=== PATIENT | male | born 1960 | race Caucasian/White ===

== ENCOUNTER → 2020-07-26 17:40 | Outpatient (CLI) | payer MEDICAID, SELFPAY ==
[2020-07-26 18:07] LABS: Basophils % 0.5 % (0.1-2.0); Eosinophils # 0.2 K/mm3 (0.0-0.4); Hematocrit 47.3 % (42.0-52.0); Hemoglobin 15.2 g/dL (14.1-18.0); Lymphocytes # 2.3 K/mm3 (0.7-4.5); Lymphocytes % 34.6 % (10-50); Mean Corpuscular HGB Conc 32.2 g/dL (31.8-35.4); Mean Corpuscular Hemoglobin 28.9 pg (27.0-31.2); Mean Corpuscular Volume 89.5 fl (80-94); Monocytes # 0.4 K/mm3 (0.1-1.0); Monocytes % 5.6 % (1.7-9.3); Neutrophils # 3.7 K/mm3 (1.8-7.8); Neutrophils % 56.4 % (37.0-80.0); Platelet Count 329 K/mm3 (142-424); Red Blood Count 5.28 M/mm3 (4.60-6.20); Red Cell Distribution Width 13.9 % (11.5-17.5); White Blood Count 6.5 K/mm3 (4.8-10.8)
[2020-07-26 18:26] LABS: Alanine Aminotransferase 18 U/L (12-78); Albumin Level 4.9 g/dl (3.5-5.0); Albumin/Globulin Ratio 1.9 (1.1-1.8); Alkaline Phosphatase 33 U/L (38-126); Anion Gap 8.8 mEq/L (5-15); Aspartate Amino Transferase 29 U/L (17-59); Bilirubin,Total 0.4 mg/dl (0.2-1.3); Blood Urea Nitrogen 8 mg/dl (9-20); Calcium 10.2 mg/dl (8.4-10.2); Carbon Dioxide 30 mmol/L (22.0-30.0); Chloride 104 mmol/L (98-107); Chol/HDL Ratio 3.2 (1-3.5); Cholesterol 203 mg/dl (140-200); Estimated Glomerular Filt Rate 76 ml/min (>60); GFR (African American) 92 ML/MIN (>60); Globulin 2.6 g/dL (1.3-3.2); Glucose 97 mg/dl (74-100); HDL Cholesterol 63 mg/dl (40-60); Potassium 4.8 mmoL/L (3.5-5.1); Sodium 138 mmol/L (136-145); Total Protein,Serum 7.5 g/dl (6.3-8.2); Triglycerides 105 mg/dl (30-150); VLDL Cholesterol 21 mg/dL (0-40)
[2020-07-26 18:38] LABS: Direct LDL Cholesterol 101.36 mg/dL (100-129)
[2020-07-26 18:43] LABS: Free T4 (Free Thyroxine) 1.58 ng/dl (0.78-2.19)
[2020-07-26 18:44] LABS: 25-OH Vitamin D, Total 39.3 ng/mL (30-100)
[2020-07-26 18:59] LABS: Prostate Specific Ag Screen 2.4 ng/ml (0.0-4.0)
== END ==
PROVIDERS: Visit Provider Emergency Medicine
DX: Z00.00 Encounter for general adult medical examination without abnormal findings (principal); R53.83 Other fatigue; Z12.5 Encounter for screening for malignant neoplasm of prostate
CPT/HCPCS: 36415; 80053; 80061; 82306; 84439; 84443; 85025; G0103

== ENCOUNTER → 2020-07-27 10:13 | Outpatient (CLI) | payer MEDICAID, SELFPAY ==
[2020-07-27 10:18] LABS: Microscopic, Urine URINE MICROSCOPIC (MICROSCOPIC)
--- NOTE | 2020-07-27 10:41 | ECG_ITS ---
APPROVED REPORT Exam: Resting ECG HR:77 bpm ECG Measurements Heart Rate 77 AXES AZ 122 P 53 QRSd 110 QRS 83 QT 374 T 43 QTc 423 Conclusion Normal sinus rhythm Normal ECG Electronically signed by : Yosef Wolf, 07/27/2020 22:19:11
[2020-07-27 10:48] LABS: Appearance,Urine CLEAR (Clear); Bilirubin,Urine Negative (Negative); Blood, Urine Negative (Negative); Color,Urine YELLOW (Yellow); Glucose,Urine (UA) Negative (Negative); Ketones,Urine Negative (Negative); Leukocyte Esterase,Urine Negative (Negative); Nitrate,Urine Negative (Negative); PH,Urine 5.5 (5.0-8.5); Protein,Urine Negative (Negative); Specific Gravity, Urine <= 1.005 (1.005-1.030); Urobilinogen,Urine 0.2 EU/dl (0.2)
[2020-07-27 11:06] LABS: Squamous Epithelial Cell,Urine Occasional #/hpf (0-5)
== END ==
PROVIDERS: PCP Emergency Medicine; Visit Provider Surgery
DX: K40.90 Unilateral inguinal hernia, without obstruction or gangrene, not specified as recurrent (principal); Z01.812 Encounter for preprocedural laboratory examination; Z11.52 Encounter for screening for COVID-19
CPT/HCPCS: 81001; 93005; U0003

== ENCOUNTER 2020-07-29 08:11 | Day surgery (SDC) | payer MEDICAID, SELFPAY ==
[2020-07-27 13:30] VITALS: BMI 23.0
[2020-07-29] VITALS (11 sets, daily range): BP systolic 105–149; BP diastolic 59–91; PULSE 76–104; RESP 12–18; TEMP 36.4–42.7; O2SAT 95–99
--- NOTE | 2020-07-29 09:41 | P.PN_ITS ---
[facility] Anesthesia Checklist - Patient Identification Patient Identification: Arm Band - Structural Data Admitted From: Home Planned Operative Procedure/s: Open inguinal hernia Consent for Planned Operative Procedure(s) Verified: Yes - NPO Status Verified Time NPO: 00:00 - Additional verifications Anesthesia Reactions: No Hx Blood Transfusions: No Blood Transfusion Reaction: No - Airway Assessment C-Spine Mobility Assessed: Yes TMJ Mobility Assessed: Yes Dentition: Poor Dentition (Missing, decay present) - Neurological Assessment Level of Consciousness: Awake Hx Seizures: No Numbness or tingling in extremities: No - Anesthesia Plan Anesthesia Risk discussed: Yes Anesthesia Plan: Verified ASA Class: III Anesthesia Type: General [facility] History I have reviewed the patient's past medical history: Yes Medical History: Reports:: Gastroesophageal Reflux Disease(GERD) Denies:: Cancer, Diabetes Mellitus Type 1, Diabetes Mellitus Type 2, Internal Pacemaker, MRSA, Seizures *Have you ever received a pneumonia vaccine?: No *Have you received a flu vaccine this season?: No Other Medical History: Reports: Other (Chronic pain). Denies: Blood Transfusion Reaction Anesthesia experience/problems:: None Other Surgeries: Yes: No Previous Surgery. No: Pacemaker Amputation: No Fractures: Yes - *Social History Last grade of school completed: 9th or 10th Smoking Status: Current every day smoker Tobacco Type: cigarettes # Packs/Day (cigarettes): 1 #Yrs smoked (if former smoker): 3 Alcohol Intake: never Substance Use Type: marijuana *Occupational Status:: unemployed Housing: house Household Members: significant other *Travel in the last 8 weeks: None Family Hx:: Cancer, Heart Attack, Diabetes
--- NOTE | 2020-07-29 11:18 | P.OP_ITS ---
Date of procedure: 07/29/20 Pre-op Diagnosis:: Right inguinal hernia (patient also has left inguinal hernia that he does not wish to have repaired at this time) Post-op Diagnosis:: Same Procedure performed:: Open right inguinal hernia repair Surgeon:: Masoud Matthews MD Anesthesia: LMA Estimated blood loss (mL): 15 Operative findings:: Large direct defect Operative note:: After informed consent was obtained the patient was taken to the operating room and placed in the supine position. General anesthesia was induced and his lower abdomen and groin/scrotum were prepped and draped in a sterile fashion. After infiltration of local anesthetic an oblique right groin incision was made. A combination of scalpel and electrocautery was utilized to transect through the subcutaneous tissue through Hattie's fascia to the level of the external aponeurosis. The external aponeurosis was sharply opened to the level of the external ring. The contents of the canal were carefully elevated. A large direct defect was encountered. The hernia sac protruding through the large direct defect was from surrounding tissue. An extra-large PerFix plug was then secured within the defect utilizing 0 Ethibond. 0 Ethibond was then used to secure the the PerFix overlay mesh to the shelving edge inferiorly and fascial margin superiorly. The external aponeurosis was reapproximated using running 2-0 Vicryl. Hattie's fascia was reapproximated in a same manner. Skin was then closed with running 3-0 Stratafix. Dressings were applied and the pa tient was transferred to recovery in stable condition. Condition: stable Disposition: PACU Specimens:: None Complications:: No immediate
--- NOTE | 2020-07-29 11:53 | P.PN_ITS ---
[facility] Anesthesia Record Part I Intake, IV Amount: 1,100 Estimated blood loss (mL): 100 Urine output (mL): 100 Blood Pressure: 121/65 SaO2: 98 Pulse Rate: 93 Respiratory Rate: 12 Temperature: 98.7 F Patient is:: Drowsy Stable to PACU at:: 11:30
[2020-07-29 13:43] LABS: Microscopic,Cath URINE MICROSCOPIC (MICROSCOPIC)
[2020-07-29 13:46] LABS: Appearance,Urine/Cath CLEAR (Clear); Bilirubin,Cath Negative (Negative); Blood, Urine/Cath Negative (Negative); Color,Urine/Cath YELLOW (Yellow); Glucose,Urine/Cath (UA) Negative (Negative); Ketones,Urine/Cath Negative (Negative); Leukocyte Esterase,Cath Negative (Negative); Nitrate,Cath Negative (Negative); Protein,Urine/Cath Negative (Negative); Urobilinogen,Cath 0.2 EU/dl (0.2)
[2020-07-29 13:50] LABS: Bacteria,Urine/Cath TRACE /lpf; Transitional Epi Cells,Ur/Cath OCC #/lpf (0-3)
--- NOTE | 2020-08-02 07:36 | HMH.ANESII ---
[facility] Anesthesia Record Part II Discharge Time: 12:00 Destination: Surgical Day Care (OP Surgery) PACU nurse assessment reviewed?: Yes Patient Condition:: Good Anesthesia Complications:: None Swallowing reflex intact?: Yes Cyanosis?: No Blood Pressure: 149/76 Pulse Rate: 96 Temperature: 98 F Mental Status: Alert & Oriented Pain level:: 2 Nausea and/or vomitting:: None Intake, IV Amount: 0
[2020-08-02 07:37] VITALS: BP 149/76; PULSE 96; TEMP 36.6
== END 2020-07-29 12:48 | disposition home or self-care (01) ==
LOC: OR 08:13
PROVIDERS: PCP Emergency Medicine; Visit Provider Surgery
PROC: (CPT 49505; principal; 2020-07-29 09:45)
DX: K40.20 Bilateral inguinal hernia, without obstruction or gangrene, not specified as recurrent (principal); K21.9 Gastro-esophageal reflux disease without esophagitis; G89.29 Other chronic pain; Z72.0 Tobacco use; Z80.9 Family history of malignant neoplasm, unspecified; Z83.3 Family history of diabetes mellitus; Z82.3 Family history of stroke
CPT/HCPCS: 49505; 81001; 96374

== ENCOUNTER → 2022-02-15 09:06 | Outpatient (CLI) | payer MEDICAID, SELFPAY ==
--- NOTE | 2022-02-15 09:07 | MR_ITS ---
FINAL REPORT CLINICAL HISTORY: back pain. intermittent leg numbness. FINDINGS: Multiplanar MR imaging of the lumbar spine was performed without contrast. On the sagittal T2-weighted images, there is abnormal decreased signal at L3-4, L4-5 and L5-S1. The vertebrae are of normal height. The vertebral alignment is normal. L3-4: A mild diffuse disc bulge is present with mild bilateral neural foraminal narrowing. L4-5: A moderate diffuse disc bulge is present with endplate hypertrophy, moderate spinal canal compromise and bilateral neural foraminal narrowing. L5-S1: A mild diffuse disc bulge is present with posterolateral disc protrusions and moderate bilateral neural foraminal narrowing. IMPRESSION: Moderate neural foraminal narrowing bilaterally at L4-5 and L5-S1. No evidence of acute osseous abnormality. Reviewed, Interpreted and Dictated by Bret Lozano MD Transcribed by Raiza Rahman Authenticated and . [facility]
== END ==
PROVIDERS: PCP Emergency Medicine; Visit Provider Emergency Medicine
DX: M54.16 Radiculopathy, lumbar region (principal)
CPT/HCPCS: 72148; 76376

== ENCOUNTER → 2022-04-02 08:49 | Outpatient (POV) | payer MEDICAID, SELFPAY ==
[2022-04-02 08:53] VITALS: BP 143/76; PULSE 101; RESP 18; O2SAT 97; BMI 20.7
--- NOTE | 2022-04-02 09:21 | EXP.PAIN.OV ---
HPI Data of Consult Patient: new to practice Consult date: 04/02/22 Requesting Physician: Sachi Kaiser APRN Primary Care Provider: Torin Agudelo MD Consult Narrative Reason for consult: Low back pain, neck pain, groin pain History of present illness: Mr. Lemon is a 61 year old male presents as a new patient. He is a referral from Dr. Agudelo's office. Patient rates his pain a 6 out of 10. He states his pain is in his low back pain that radiates into his left groin area. Patient also states that he has had neck pain for approximately 2 years. Patient states that his low back pain started about 7 years ago denies injury. States that pain is sharp and runs into his left groin. Patient states that pain is worse when sitting and standing and stretching helps his back. Patient states he has tried kkzl-aou-wonhmzv medications such as Tylenol and ibuprofen and they are not effective. He states he does use ice and heat and it does help at times. Patient currently also uses topical cream and lidocaine and he states that it is effective at times. Patient currently also sees his family provider Dr. Agudelo he currently is prescribed the following medication from his family provider: gabapentin 100 mg 3 times a day, hydrocodone acetaminophen 325/ 5 mg twice a day. Patient denies any side effects from this medication. [facility] #[id number] was reviewed and appropriate. CC: Sachi Kaiser APRN [facility] Disclaimer: The information contained in this section may have been updated after the patient was seen, as this information can be updated by other users. Surgical History H/O hernia repair Status post right foot surgery Social History (Updated 04/02/22 @ 09:10 by Landy Bustos RN) Smoking Status: Current every day smoker tobacco type: cigarettes packs per day: 1 alcohol intake: never substance use type: denies use current occupational status: disabled Travel in the last 8 weeks: None household members: significant other housing: house caffeine: Yes Review of Systems Review of Systems Review of systems (narrative): Review of Systems: General: No recent weight changes, no fever, no sleep disturbances Respiratory: No cough, no shortness of air, no recurring pulmonary infections Cardiovascular/peripheral vascular: No chest pain, no palpitations, no edema, no shortness of breath Gastrointestinal: No new onset incontinence, normal bowel movements reported Genitourinary: No new onset incontinence Musculoskeletal: low back pain radiating into right groin Psychiatric: [Normal mood/affect] Neurological: [Denies weakness in extremities], [denies balance issues] Meds Home Medications and Allergies Home Medications Medication Instructions Recorded Confirmed Type hydrocodone 5 mg-acetaminophen 325 1 tab PO BID pain #60 tabs 03/15/22 04/02/22 Rx mg tablet gabapentin 100 mg capsule 100 mg PO TID Pain 04/02/22 04/02/22 History lidocaine 5 % topical patch 1 patch topical DAILY Pain 04/02/22 04/02/22 History New Prescriptions to Start Prescriptions: Allergies Allergy/AdvReac Type Severity Reaction Status Date / Time No Known Allergies Allergy Verified 03/15/22 13:41 Objective Vital signs: Pulse Resp BP Pulse Ox 101 H 18 143/76 H 97 04/02/22 08:53 04/02/22 08:53 04/02/22 08:53 04/02/22 08:53 Narrative: Physical Exam: General: Alert and oriented x3, no acute distress, pleasant and cooperative Lungs: Respirations even and unlabored, symmetrical chest expansion Eyes: PERRL Musculoskeletal: Flexion and extension of lumbar [spine] somewhat guarded secondary to pain, [antalgic gait noted,extreme point tenderness in low back, positive Saray's. Neurological: Speech clear, no gross sensory deficit Additional findings Additional findings: MRI Results: Ordering Physician: Torin Agudelo MD Date of Service: 02/15/22 Pr
== END ==
PROVIDERS: PCP Emergency Medicine; Visit Provider Nurse Practitioner Family
DX: M48.061 Spinal stenosis, lumbar region without neurogenic claudication (principal); M54.50 Low back pain, unspecified; M54.2 Cervicalgia; R10.31 Right lower quadrant pain
CPT/HCPCS: 99202; G0463

== ENCOUNTER → 2022-04-11 15:00 | Outpatient (CLI) | payer MEDICAID, SELFPAY ==
[2022-04-11 20:36] LABS: Amphetamine/Metha Screen,Urine Negative ng/ml (<1000)
[2022-04-11 20:37] LABS: Barbiturates Screen,Urine Negative ng/ml (<200); Benzodiazepines Screen,Urine Negative ng/ml (<200)
[2022-04-11 20:38] LABS: Cannabinoid Screen,Urine Positive ng/ml (<50); Cocaine Screen,Urine Negative ng/ml (<300)
[2022-04-11 20:39] LABS: Methadone Screen,Urine Negative ng/ml (<300)
[2022-04-11 20:40] LABS: Opiate Screen,Urine Positive ng/ml (<300); Phencyclidine Screen,Urine Negative ng/ml (<25)
== END ==
PROVIDERS: PCP Emergency Medicine; Visit Provider Emergency Medicine
DX: M54.16 Radiculopathy, lumbar region (principal)
CPT/HCPCS: 80305

== ENCOUNTER → 2022-06-06 23:00 | Outpatient (CLI) | payer MEDICARE, MEDICAID, SELFPAY ==
[2022-06-06 19:08] LABS: Barbiturates Screen,Urine Negative ng/ml (<200)
[2022-06-06 19:09] LABS: Benzodiazepines Screen,Urine Negative ng/ml (<200)
[2022-06-06 19:12] LABS: Cocaine Screen,Urine Negative ng/ml (<300); Methadone Screen,Urine Negative ng/ml (<300)
[2022-06-06 19:13] LABS: Opiate Screen,Urine Negative ng/ml (<300)
[2022-06-06 19:14] LABS: Phencyclidine Screen,Urine Negative ng/ml (<25)
[2022-06-06 19:33] LABS: Amphetamine/Metha Screen,Urine Negative ng/ml (<1000)
[2022-06-06 19:36] LABS: Cannabinoid Screen,Urine Positive ng/ml (<50)
== END ==
PROVIDERS: PCP Emergency Medicine; Visit Provider Emergency Medicine
DX: Z79.899 Other long term (current) drug therapy (principal)
CPT/HCPCS: 80305

== ENCOUNTER → 2022-10-03 11:00 | Outpatient (CLI) | payer MEDICARE, MEDICAID, SELFPAY ==
[2022-10-03 12:40] LABS: Basophils % 0.7 % (0.1-2.0); Eosinophils # 0.1 K/mm3 (0.0-0.4); Eosinophils % 1.7 % (0.1-12.0); Hematocrit 47.3 % (42.0-52.0); Hemoglobin 14.7 g/dL (14.1-18.0); Lymphocytes # 1.9 K/mm3 (0.7-4.5); Lymphocytes % 32.5 % (10-50); Mean Corpuscular HGB Conc 31.1 g/dL (31.8-35.4); Mean Corpuscular Volume 93.3 fl (80-94); Mean Platelet Volume 7.3 fl (7.4-10.4); Monocytes # 0.3 K/mm3 (0.1-1.0); Monocytes % 5.4 % (1.7-9.3); Neutrophils # 3.6 K/mm3 (1.8-7.8); Neutrophils % 59.8 % (37.0-80.0); Platelet Count 286 K/mm3 (142-424); Red Blood Count 5.07 M/mm3 (4.60-6.20); Red Cell Distribution Width 13.7 % (11.5-17.5)
[2022-10-03 12:48] LABS: Alanine Aminotransferase 36 U/L (12-78); Albumin Level 4.6 g/dl (3.5-5.0); Albumin/Globulin Ratio 1.8 (1.1-1.8); Alkaline Phosphatase 27 U/L (38-126); Anion Gap 8.2 mEq/L (5-15); Aspartate Amino Transferase 78 U/L (17-59); Bilirubin,Total 0.3 mg/dl (0.2-1.3); Blood Urea Nitrogen 7 mg/dl (9-20); Calcium 9.2 mg/dl (8.4-10.2); Carbon Dioxide 30 mmol/L (22.0-30.0); Chloride 104 mmol/L (98-107); Chol/HDL Ratio 2.9 (1-3.5); Cholesterol 191 mg/dl (140-200); Estimated Glomerular Filt Rate 86 ml/min (>60); GFR (African American) 103 ML/MIN (>60); Globulin 2.5 g/dL (1.3-3.2); Glucose 94 mg/dl (74-100); HDL Cholesterol 65 mg/dl (40-60); Potassium 4.2 mmoL/L (3.5-5.1); Sodium 138 mmol/L (136-145); Total Protein,Serum 7.1 g/dl (6.3-8.2); Triglycerides 66 mg/dl (30-150); VLDL Cholesterol 13 mg/dL (0-40)
[2022-10-03 13:00] LABS: Direct LDL Cholesterol 101.78 mg/dL (100-129)
[2022-10-03 13:04] LABS: 25-OH Vitamin D, Total 43.3 ng/mL (30-100); Free T4 (Free Thyroxine) 1.19 ng/dl (0.78-2.19)
[2022-10-03 13:08] LABS: Amphetamine/Metha Screen,Urine Negative ng/ml (<1000)
[2022-10-03 13:09] LABS: Barbiturates Screen,Urine Negative ng/ml (<200); Benzodiazepines Screen,Urine Negative ng/ml (<200)
[2022-10-03 13:10] LABS: Cannabinoid Screen,Urine Positive ng/ml (<50)
[2022-10-03 13:11] LABS: Cocaine Screen,Urine Negative ng/ml (<300); Methadone Screen,Urine Negative ng/ml (<300)
[2022-10-03 13:12] LABS: Opiate Screen,Urine Positive ng/ml (<300)
[2022-10-03 13:13] LABS: Phencyclidine Screen,Urine Negative ng/ml (<25)
[2022-10-03 13:20] LABS: Thyroid Stimulating Hormone 1.33 uIU/mL (0.465-4.68)
== END ==
PROVIDERS: PCP Emergency Medicine; Visit Provider Emergency Medicine
DX: R53.83 Other fatigue (principal); E03.9 Hypothyroidism, unspecified; K59.00 Constipation, unspecified; Z79.899 Other long term (current) drug therapy
CPT/HCPCS: 80053; 80061; 80305; 82306; 84439; 84443; 85025

== ENCOUNTER → 2022-11-30 14:35 | Outpatient (CLI) | payer MEDICARE, MEDICAID, SELFPAY ==
[2022-11-30 19:35] LABS: Amphetamine/Metha Screen,Urine Negative ng/ml (<1000); Barbiturates Screen,Urine Negative ng/ml (<200)
[2022-11-30 19:36] LABS: Benzodiazepines Screen,Urine Negative ng/ml (<200)
[2022-11-30 19:37] LABS: Cannabinoid Screen,Urine Positive ng/ml (<50)
[2022-11-30 19:38] LABS: Cocaine Screen,Urine Negative ng/ml (<300)
[2022-11-30 19:39] LABS: Methadone Screen,Urine Negative ng/ml (<300)
[2022-11-30 19:43] LABS: Opiate Screen,Urine Positive ng/ml (<300)
[2022-11-30 19:44] LABS: Phencyclidine Screen,Urine Negative ng/ml (<25)
== END ==
PROVIDERS: PCP Emergency Medicine; Visit Provider Emergency Medicine
DX: M54.16 Radiculopathy, lumbar region (principal); Z79.899 Other long term (current) drug therapy
CPT/HCPCS: 80305

== ENCOUNTER 2023-03-28 19:02 | Outpatient (CLI) | payer MEDICAID, SELFPAY ==
[2023-03-28 21:20] LABS: Amphetamine/Metha Screen,Urine Negative ng/ml (<1000); Barbiturates Screen,Urine Negative ng/ml (<200); Benzodiazepines Screen,Urine Negative ng/ml (<200); Cannabinoid Screen,Urine Positive ng/ml (<50); Cocaine Screen,Urine Negative ng/ml (<300); Methadone Screen,Urine Negative ng/ml (<300); Opiate Screen,Urine Positive ng/ml (<300); Phencyclidine Screen,Urine Negative ng/ml (<25)
[2023-04-02 17:09] LABS: Codeine Negative (Cutoff=100); Hydrocodone Positive (.); Hydromorphone Positive (.); Morphine Negative (Cutoff=100); Opiates Positive (.)
== END 2023-03-28 23:59 ==
PROVIDERS: Visit Provider Family Medicine
DX: Z79.899 Other long term (current) drug therapy (principal)
CPT/HCPCS: 80307; 80361; 80365; G0480

== ENCOUNTER 2023-09-26 14:55 | Outpatient (POV) | payer MEDICARE, MEDICAID, SELFPAY ==
[2023-09-26 15:25] VITALS: BP 157/79; PULSE 110; RESP 18; O2SAT 96; BMI 22.1
--- NOTE | 2023-09-26 15:48 | A.OFFVIS_ITS ---
HPI Data of Consult Patient: new to practice Consult date: 09/26/23 Requesting Physician: Sachi Kaiser APRN Primary Care Provider: Jackie Mullins RN Consult Narrative Reason for consult: Neck pain, mid back pain, low back pain History of present illness: Mr. Lemon is a 63 year old male who presents today as a [facility]. Today he rates his pain a 7 out of 10. Patient states he has pain throughout his neck that radiates down in his mid back to his low back. Patient does state that the primary is with neck and low back. Patient states that this is a chronic aching, throbbing sensation and denies any radiating symptoms into his extremities. Patient does state the pain has been going on for years and progressively worsened. Patient states that he has tried kcra-oov-kmlwukl medications such as Tylenol and ibuprofen along with heat and ice and topicals with minimal relief. Patient has to eat active and do at home exercise and stretching with minimal relief. Patient denies any physical therapy or chiropractor history. Patient has been seen in pain management in the past however denies any injection history or surgery history. Patient states he has not had any updated imaging for about 3 years. He is interested in any help we may be able to provide as the pain does interfere with his ability perform activities of daily living such as cooking and cleaning. He does state that he notices that more pain with certain movements such as bending, twisting or lifting. He states he can just sneezing causes significant pain. He has been on gabapentin and Coleraine in the past from outside providers. His Chetan has been reviewed. CC: Sachi Kaiser APRN [facility] Disclaimer: The information contained in this section may have been updated after the patient was seen, as this information can be updated by other users. Medical History (Updated 09/26/23 @ 15:51 by Sachi Kaiser APRN) Anxiety Depression Surgical History Status post right foot surgery H/O hernia repair Family History (Updated 09/26/23 @ 15:04 by Landy Bustos RN) Other Unknown family medical history Social History (Updated 09/26/23 @ 15:04 by Landy Bustos RN) Smoking Status: Current every day smoker tobacco type: cigarettes packs per day: 1 alcohol intake: never substance use type: denies use current occupational status: disabled Travel in the last 8 weeks: None household members: significant other housing: house caffeine: Yes Review of Systems Review of Systems Review of systems:: pertinent systems reviewed and negative unless documented below Review of systems (narrative): Review of Systems: General: No recent weight changes, no fever, no sleep disturbances Respiratory: No cough, no shortness of air, no recurring pulmonary infections Cardiovascular/peripheral vascular: No chest pain, no palpitations, no edema, no shortness of breath Gastrointestinal: No new onset incontinence, normal bowel movements reported Genitourinary: No new onset incontinence Musculoskeletal: Neck pain, low back pain Psychiatric: [Normal mood/affect] Neurological: [Denies weakness in extremities], [denies balance issues] Meds Home Medications and Allergies Home Medications Medication Instructions Recorded Confirmed Type diclofenac sodium 1 % topical gel 2 g topical QID #100 grams 05/02/23 09/26/23 Rx amitriptyline 50 mg tablet 50 mg PO HS sleep #90 tabs 06/04/23 09/26/23 Rx lidocaine 5 % topical patch 1 patch topical DAILY Pain #30 ea 07/01/23 09/26/23 Rx New Prescriptions to Start Prescriptions: Allergies Allergy/AdvReac Type Severity Reaction Status Date / Time No Known Allergies Allergy Verified 07/01/23 14:02 Objective Vital signs: Pulse Resp BP Pulse Ox O2 Del Method 110 H 18 157/79 H 96 Room Air 09/26/23 15:25 09/26/23 15:25 09/26/23 15:25 09/26/23 15:25 09/26/23 15:25 Narrative: Physical Exam: General: Alert and oriented x3, no acute distress, pleasant and cooperative Lungs: Respirations even and unlabored, symmetrical chest expansion Eyes: PERRL Musculoskeletal: Flexion and extension of lumbar [spine] somewhat guarded secondary to pain, [antalgic gait noted] positive Kemps test Neurological: Speech clear, no gross sensory deficit Assessment and Plan *Assessment and plan (1) Low back pain: Status: Acute Qualifiers: Chronicity: chronic Back pain laterality: bilateral Sciatica presence: without sciatica Qualified Code(s): M54.50 - Low back pain, unspecified; G89.29 - Other chronic pain Category: Medical Code(s): M54.50 - Low back pain, unspecified (2) Neck pain: Status: Acute Category: Medical Code(s): M54.2 - Cervicalgia Plan Patient is experiencing significant pain throughout his low back and neck with limited range of motion. Patient did have a positive Kemps test of his lumbar spine during today's exam. I have discussed with patient that he may benefit from lumbar medial branch blocks in the future however due to not having updated imaging we will first order x-ray imaging of his cervical and lumbar spine. I will order MRI without contrast to follow of the cervical and lumbar spine. Patient does state that the lumbar spine is worse than the neck. Patient will return to clinic in 1 month for reevaluation of symptoms and plan of care. Patient has been instructed to contact the clinic with any concerns before the next appointment. Dr. Self has reviewed this note and agrees with this plan of care. This note was dictated using voice recognition software and make contain errors or omissions.
== END 2023-09-26 23:59 | disposition home or self-care (01) ==
PROVIDERS: Visit Provider Nurse Practitioner Family
DX: M54.50 Low back pain, unspecified (principal); G89.29 Other chronic pain; M54.2 Cervicalgia
CPT/HCPCS: 99202; G0463